=== PATIENT | male | born 1985 | race Caucasian/White ===

== ENCOUNTER 2021-07-04 14:40 | Emergency (ER) | payer MEDICAID ==
[~2021-07-04] VITALS: Ht 167.6 cm; Wt 80.0 kg
[2021-07-04] MEDS ORDERED: LORAZEPAM 2MG/ML CPJ IV STA (16:19)
[2021-07-04] MEDS ORDERED: SODIUM CHLORIDE 0.9% 1,000 ML IV ONE (16:30)
[2021-07-04 16:39] LABS: BASOPHILS % 0.4 % (0.0-2.0); HEMATOCRIT. 49.1 % (42.0-52.0); HEMOGLOBIN. 16.7 g/dL (14.0-18.0); LYMPHOCYTES % 16.5 % (20.0-50.0); MEAN CORPUSCULAR HEMOGLOBIN 31.6 pg (28.0-32.0); MEAN CORPUSCULAR VOLUME 92.6 fL (80.0-94.0); MEAN PLATELET VOLUME 6.6 fl (7.4-10.4); MONOCYTES % 7.4 % (2.0-8.0); NEUTROPHILS % 75.7 % (40.0-76.0); PLATELET 325 x1000/uL (130-400); RED CELL DISTRIBUTION WIDTH 13.4 % (11.6-14.6)
[2021-07-04 16:46] LABS: CHLORIDE 103 mEq/L (98-107)
[2021-07-04 16:50] LABS: ETHANOL BLOOD 19 mg/dL
[2021-07-04] MEDS ORDERED: POTASSIUM CHLORIDE 20MEQ TABLET SR PO NR (17:30)
[2021-07-04 18:25] LABS: CLARITY URINE CLEAR (CLEAR); COLOR URINE YELLOW (YELLOW); KETONES URINE 4+ (NEGATIVE); LEUKOCYTE ESTERASE URINE NEGATIVE (NEGATIVE); NITRITE URINE NEGATIVE (NEGATIVE); OCCULT BLOOD URINE NEGATIVE (NEGATIVE); PH URINE 6.5 (4.5-8.0); PROTEIN URINE NEGATIVE (NEGATIVE); SPECIFIC GRAVITY URINE 1.011 (1.005-1.030); UROBILINOGEN URINE 0.2 E.U./dL (0.2-1.0)
[2021-07-04 18:53] LABS: *COCAINE SCREEN URINE NEGATIVE (NEGATIVE); METHADONE URINE SCREEN NEGATIVE (NEGATIVE); OPIATES URINE SCREEN NEGATIVE (NEGATIVE)
[2021-07-04 18:54] LABS: *AMPHETAMINES SCREEN URINE PRESUMTIVE POSITIVE (NEGATIVE); *BARBITURATES SCREEN URINE NEGATIVE (NEGATIVE); *BENZODIAZEPINES SCREEN URINE NEGATIVE (NEGATIVE); CANNABINOID URINE SCREEN PRESUMTIVE POSITIVE (NEGATIVE); PHENCYCLIDINE URINE SCREEN NEGATIVE (NEGATIVE)
[2021-07-04 19:55] VITALS: BP 140/89
[2021-07-04] MEDS ORDERED: ACETAMINOPHEN 325MG TABLET PO ONE (20:15)
== END 2021-07-04 20:00 | disposition home or self-care (01) ==
LOC: ER 14:40
DX: F15.10 Other stimulant abuse, uncomplicated (principal); R00.2 Palpitations; E86.0 Dehydration; F17.210 Nicotine dependence, cigarettes, uncomplicated; F10.10 Alcohol abuse, uncomplicated; Y90.0 Blood alcohol level of less than 20 mg/100 ml
CPT/HCPCS: 36415; 71045; 80053; 80305; 80320; 81003; 84484; 85025; 93005; 96361; 96374; 99285; J2060; J7030; G0480

== ENCOUNTER 2025-01-21 09:58 | Inpatient (IN) | payer SELFPAY ==
[~2025-01-21] VITALS: Ht 167.6 cm; Wt 71.7 kg
[2025-01-21 10:01] VITALS: O2SAT 100
[2025-01-21] MEDS ORDERED: PANTOPRAZOLE 80 MG in SODIUM CHLORIDE 0.9% 100 ML IV SCH (10:15)
[2025-01-21 10:37] LABS: BASOPHILS % 0.8 % (0.0-2.0); EOSINOPHILS % 0.0 % (0.0-5.0); HEMATOCRIT. 34.5 % (42.0-52.0); HEMOGLOBIN. 11.7 g/dL (14.0-18.0); LYMPHOCYTES % 20.1 % (20.0-50.0); MEAN PLATELET VOLUME 6.8 fl (7.4-10.4); MONOCYTES % 7.1 % (2.0-8.0); NEUTROPHILS % 72.0 % (40.0-76.0); PLATELET 147 x1000/uL (130-400); RED BLOOD CELL COUNT 3.78 mill/uL (4.7-6.1); RED CELL DISTRIBUTION WIDTH 14.5 % (11.6-14.6)
[2025-01-21] MEDS: CEFTRIAXONE 1GM/50ML 50 ML IV ONE (10:43)
[2025-01-21] MEDS: SODIUM CHLORIDE 0.9% (SEPSIS BOLUS) IV ONE (10:43)
[2025-01-21 10:48] LABS: INR 1.4
[2025-01-21 10:57] LABS: CREATININE 0.8 mg/dL (0.6-1.3)
[2025-01-21 10:58] LABS: ETHANOL BLOOD 130 mg/dL (<10); UREA NITROGEN BLOOD 18 mg/dL (9-23)
[2025-01-21 10:59] LABS: ASPARTATE AMINOTRANSFERASE 157 IU/L (<34); BILIRUBIN DIRECT 1.0 mg/dL (<=3.0)
[2025-01-21 11:00] LABS: BILIRUBIN TOTAL 2.3 mg/dL (0.1-1.0); PROTEIN TOTAL 7.8 g/dL (6.0-8.3)
[2025-01-21] MEDS: METOCLOPRAMIDE HCL 10MG/2ML VIAL IV NR (13:00)
[2025-01-21] MEDS: OCTREOTIDE ACETATE 50 MCG/ML 1ML IV NR (13:00)
[2025-01-21] MEDS: PANTOPRAZOLE 80 MG in SODIUM CHLORIDE 0.9% 100 ML IV SCH (13:34)
[2025-01-21] MEDS: OCTREOTIDE ACETATE 50 MCG/ML 1ML IV ONE (13:34)
[2025-01-21] MEDS: PANTOPRAZOLE 80 MG in SODIUM CHLORIDE 0.9% 100 ML IV ONE (13:39)
[2025-01-21] MEDS: METOCLOPRAMIDE HCL 10MG/2ML VIAL IV ONE (13:56)
[2025-01-21] MEDS ORDERED: IOHEXOL-300 100 ML BOTTLE ONE (14:13)
[2025-01-21] MEDS ORDERED: ONDANSETRON HCL 4MG/2ML INJ IV PRN (15:00)
[2025-01-21 15:02] VITALS: BP 125/81; PULSE 103; RESP 23; TEMP 36.6; O2SAT 98
[2025-01-21 16:00] VITALS: BP 129/81; PULSE 108; RESP 18; TEMP 36.6; O2SAT 98
[2025-01-21] MEDS: OCTREOTIDE 1,000 MCG in SODIUM CHLORIDE 0.9% 98 ML IV SCH (16:43)
[2025-01-21 18:00] VITALS: BP 131/77; PULSE 100; RESP 21; O2SAT 94
[2025-01-21 19:24] LABS: CLARITY URINE CLEAR (CLEAR); COLOR URINE YELLOW (YELLOW); GLUCOSE URINE NEGATIVE (NEGATIVE); KETONES URINE 1+ (NEGATIVE); LEUKOCYTE ESTERASE URINE TRACE (NEGATIVE); NITRITE URINE NEGATIVE (NEGATIVE); OCCULT BLOOD URINE NEGATIVE (NEGATIVE); PH URINE 6.5 (4.5-8.0); PROTEIN URINE NEGATIVE (NEGATIVE); SPECIFIC GRAVITY URINE 1.030 (1.005-1.030); UROBILINOGEN URINE 1.0 E.U./dL (0.2-1.0)
[2025-01-21 19:48] LABS: BACTERIA URINE TRACE; RBC URINE NONE SEEN /hpf (0-2); SQUAMOUS EPITHELIAL CELL URINE RARE /lpf (RARE/1+); WBC URINE 0-2 /hpf (0-2)
[2025-01-21 20:00] VITALS: BP 119/82; PULSE 97; RESP 26; TEMP 37.1; O2SAT 98
[2025-01-21 22:00] VITALS: BP 118/82; PULSE 88; RESP 6; O2SAT 98
[2025-01-21] MEDS: SODIUM CHLORIDE 0.9% 3ML FLUSH IVF SCH (22:00)
[2025-01-21] MEDS: PANTOPRAZOLE SODIUM 40 MG/VIAL IV SCH (23:08)
[2025-01-22] VITALS (12 sets, daily range): BP systolic 111–126; BP diastolic 74–81; PULSE 76–102; RESP 13–25; TEMP 36.6–37.2; O2SAT 98–100
[2025-01-22 07:26] LABS: BASOPHILS % 0.9 % (0.0-2.0); EOSINOPHILS % 1.3 % (0.0-5.0); HEMATOCRIT. 28.6 % (42.0-52.0); HEMOGLOBIN. 9.9 g/dL (14.0-18.0); LYMPHOCYTES % 37.7 % (20.0-50.0); MEAN PLATELET VOLUME 7.2 fl (7.4-10.4); MONOCYTES % 8.4 % (2.0-8.0); NEUTROPHILS % 51.7 % (40.0-76.0); PLATELET 77 x1000/uL (130-400); RED BLOOD CELL COUNT 3.15 mill/uL (4.7-6.1); RED CELL DISTRIBUTION WIDTH 15.4 % (11.6-14.6)
[2025-01-22 07:35] LABS: INR 1.4
[2025-01-22 07:58] LABS: CREATININE 0.8 mg/dL (0.6-1.3)
[2025-01-22 07:59] LABS: UREA NITROGEN BLOOD 17 mg/dL (9-23)
[2025-01-22 08:01] LABS: ASPARTATE AMINOTRANSFERASE 104 IU/L (<34); BILIRUBIN TOTAL 2.6 mg/dL (0.1-1.0); PROTEIN TOTAL 6.7 g/dL (6.0-8.3)
[2025-01-22 19:00] LABS: HEPATITIS A AB IGM NEGATIVE (Negative); HEPATITIS B CORE AB IGM NEGATIVE (Negative)
[2025-01-22 19:01] LABS: HEPATITIS C AB NON REACTIVE (Neg) (Negative)
[2025-01-22] MEDS: CHLORDIAZEPOXIDE 25MG CAPSULE PO SCH (21:57)
[2025-01-23] VITALS (12 sets, daily range): BP systolic 103–121; BP diastolic 72–86; PULSE 73–92; RESP 15–24; TEMP 36.5–37.3; O2SAT 97–99
[2025-01-23 08:11] LABS: INR 1.3
[2025-01-23 08:26] LABS: BASOPHILS % 0.6 % (0.0-2.0); EOSINOPHILS % 2.5 % (0.0-5.0); HEMATOCRIT. 27.9 % (42.0-52.0); HEMOGLOBIN. 9.7 g/dL (14.0-18.0); LYMPHOCYTES % 35.1 % (20.0-50.0); MEAN PLATELET VOLUME 7.0 fl (7.4-10.4); MONOCYTES % 7.4 % (2.0-8.0); NEUTROPHILS % 54.4 % (40.0-76.0); PLATELET 92 x1000/uL (130-400); RED BLOOD CELL COUNT 3.07 mill/uL (4.7-6.1); RED CELL DISTRIBUTION WIDTH 14.9 % (11.6-14.6)
[2025-01-23 08:29] LABS: CREATININE 0.9 mg/dL (0.6-1.3)
[2025-01-23 08:30] LABS: UREA NITROGEN BLOOD 15 mg/dL (9-23)
[2025-01-23 08:32] LABS: ASPARTATE AMINOTRANSFERASE 140 IU/L (<34); BILIRUBIN TOTAL 3.1 mg/dL (0.1-1.0); PROTEIN TOTAL 7.1 g/dL (6.0-8.3)
[2025-01-23] MEDS: THIAMINE HCL 100MG TABLET PO SCH (08:50)
[2025-01-23] MEDS: MULTIVITAMINS,THER W-MINERALS TABLET PO SCH (08:50)
[2025-01-23] MEDS: FOLIC ACID 1MG TABLET PO SCH (08:50)
[2025-01-24] VITALS (12 sets, daily range): BP systolic 89–121; BP diastolic 55–102; PULSE 65–101; RESP 13–23; TEMP 36.3–37.1; O2SAT 96–100
[2025-01-24 07:15] LABS: CREATININE 0.9 mg/dL (0.6-1.3); UREA NITROGEN BLOOD 15 mg/dL (9-23)
[2025-01-24 07:17] LABS: ASPARTATE AMINOTRANSFERASE 156 IU/L (<34); BASOPHILS % 0.6 % (0.0-2.0); BILIRUBIN TOTAL 2.3 mg/dL (0.1-1.0); EOSINOPHILS % 3.4 % (0.0-5.0); HEMATOCRIT. 27.3 % (42.0-52.0); HEMOGLOBIN. 9.5 g/dL (14.0-18.0); INR 1.3; LYMPHOCYTES % 36.6 % (20.0-50.0); MEAN PLATELET VOLUME 7.2 fl (7.4-10.4); MONOCYTES % 8.2 % (2.0-8.0); NEUTROPHILS % 51.2 % (40.0-76.0); PLATELET 107 x1000/uL (130-400); RED BLOOD CELL COUNT 2.98 mill/uL (4.7-6.1); RED CELL DISTRIBUTION WIDTH 14.9 % (11.6-14.6)
[2025-01-24 07:18] LABS: PROTEIN TOTAL 6.7 g/dL (6.0-8.3)
[2025-01-24] MEDS ORDERED: PROPOFOL 200MG/20ML VIAL IV ONE ×2 (14:54→15:09)
[2025-01-24] MEDS ORDERED: ONDANSETRON HCL 4MG/2ML INJ IV PRN (15:00)
[2025-01-24] MEDS: SUCRALFATE 1G TABLET PO SCH (17:18)
[2025-01-25] VITALS (11 sets, daily range): BP systolic 108–131; BP diastolic 69–88; PULSE 71–90; RESP 11–24; TEMP 36.8–37.2; O2SAT 96–99
[2025-01-25] MEDS: CARVEDILOL 3.125 MG TABLET PO SCH (09:48)
[2025-01-25 11:21] LABS: PLATELET 98 x1000/uL (130-400); RED BLOOD CELL COUNT 2.97 mill/uL (4.7-6.1); RED CELL DISTRIBUTION WIDTH 15.4 % (11.6-14.6)
[2025-01-25 11:40] LABS: CREATININE 1.0 mg/dL (0.6-1.3); UREA NITROGEN BLOOD 13 mg/dL (9-23)
[2025-01-26] VITALS: BP 109/67; PULSE 76; RESP 22; TEMP 37; O2SAT 96
[2025-01-26 04:00] VITALS: BP 98/68; PULSE 73; RESP 18; TEMP 37.1; O2SAT 95
[2025-01-26 08:00] VITALS: BP 98/63; PULSE 72; RESP 15; TEMP 36.6; O2SAT 97
[2025-01-26 08:29] LABS: PLATELET 110 x1000/uL (130-400); RED BLOOD CELL COUNT 2.98 mill/uL (4.7-6.1); RED CELL DISTRIBUTION WIDTH 15.8 % (11.6-14.6)
[2025-01-26 12:00] VITALS: BP 97/61; PULSE 80; RESP 19; TEMP 37.2; O2SAT 98
[2025-01-26 16:00] VITALS: BP_SYST 101; BP_SYST 109; BP_DIAS 62; BP_DIAS 63; PULSE 81; PULSE 83; RESP 18; TEMP 36.4; TEMP 37; O2SAT 100; O2SAT 98
[2025-01-26] MEDS ORDERED: SUCR1TAB30 PO (16:00)
[2025-01-26] MEDS ORDERED: PROT40 MT (16:00)
[2025-01-26 18:07] VITALS: BP 101/62; PULSE 83; RESP 18; TEMP 98.6
== END 2025-01-26 19:25 | disposition home or self-care (01) ==
LOC: ER 09:58 → 5EST 11:20 → EDBEDREQTM 11:21 → EDBEDREQ 11:21 → ENRESERV 12:13 → 5EST 14:27 → 7EST 01-26 12:22
PROVIDERS: ADMIT Internal Medicine; ATTEND Internal Medicine
PROC: 0DB78ZX Excision of Stomach, Pylorus, Via Natural or Artificial Opening Endoscopic, Diagnostic (ICD-10-PCS; principal; 2025-01-24)
PROC: 06L38CZ Occlusion of Esophageal Vein with Extraluminal Device, Via Natural or Artificial Opening Endoscopic (ICD-10-PCS; 2025-01-24)
DX: K74.60 Unspecified cirrhosis of liver (principal); I85.11 Secondary esophageal varices with bleeding; D69.6 Thrombocytopenia, unspecified; K76.6 Portal hypertension; D64.9 Anemia, unspecified; K80.20 Calculus of gallbladder without cholecystitis without obstruction; D72.819 Decreased white blood cell count, unspecified; K29.70 Gastritis, unspecified, without bleeding; F10.20 Alcohol dependence, uncomplicated; I10 Essential (primary) hypertension; I86.4 Gastric varices; K76.0 Fatty (change of) liver, not elsewhere classified; R16.1 Splenomegaly, not elsewhere classified; K31.89 Other diseases of stomach and duodenum; Y90.6 Blood alcohol level of 120-199 mg/100 ml; Z79.899 Other long term (current) drug therapy; Z87.442 Personal history of urinary calculi; Z55.6 Problems related to health literacy
CPT/HCPCS: 36415; 71045; 74177; 80048; 80053; 80076; 80320; 81003; 82962; 83605; 84145; 85018; 85025; 85027; 86705; 86709; 86850; 86900; 87340; 88305; 88312; 88313; 93005; 94002; 94070; 94664; 98960; 99291; A4606; J0696; J2354; J2470; J2704; J2765; J7030; J7050; Q9967; G0480